=== PATIENT | female | born 1970 | race Caucasian/White ===

== ENCOUNTER 2018-07-27 14:44 | Emergency (ER) | payer SELFPAY ==
[~2018-07-27] VITALS: Ht 167.6 cm; Wt 115.9 kg
[2018-07-27 14:47] VITALS: Ht 167.6 cm; Wt 115.9 kg
[2018-07-27] MEDS ORDERED: CORTEF10 MG PO (14:50)
[2018-07-27] MEDS ORDERED: FLORINEF 0.1 M0.1 MG PO (14:50)
[2018-07-27] MEDS ORDERED: BUSPAR10 MG PO (14:51)
[2018-07-27] MEDS ORDERED: NEURONTIN 300300 MG PO (14:51)
[2018-07-27] MEDS ORDERED: TRAZODONE HCL100 MG PO (14:51)
[2018-07-27] MEDS ORDERED: PROPRANOLOL HCL20 MG PO (14:51)
[2018-07-27] MEDS ORDERED: CYMBALTA60 MG (14:52)
[2018-07-27] MEDS ORDERED: CYCLOBENZAPRINE10 MG PO (17:02)
[2018-07-27] MEDS ORDERED: EC-NAPROSYN500 MG PO (17:02)
[2018-07-27 17:50] VITALS: BP 118/72
== END 2018-07-27 17:52 | disposition home or self-care (01) ==
LOC: D.ER 14:44
DX: S93.402A Sprain of unspecified ligament of left ankle, initial encounter (principal); W18.31XA Fall on same level due to stepping on an object, initial encounter; Y93.89 Activity, other specified; Y92.019 Unspecified place in single-family (private) house as the place of occurrence of the external cause; S83.92XA Sprain of unspecified site of left knee, initial encounter; M54.5 Low back pain; E27.1 Primary adrenocortical insufficiency; E06.3 Autoimmune thyroiditis

== ENCOUNTER 2018-11-10 20:27 | Emergency (ER) | payer SELFPAY ==
[~2018-11-10] VITALS: Ht 167.6 cm; Wt 118.2 kg
[~2018-11-10 20:27] MED LIST: BUSPAR10 MG PO; CORTEF10 MG PO; CYCLOBENZAPRINE10 MG PO; CYMBALTA60 MG; EC-NAPROSYN500 MG PO; FLORINEF 0.1 M0.1 MG PO; NEURONTIN 300300 MG PO; PROPRANOLOL HCL20 MG PO; TRAZODONE HCL100 MG PO
[2018-11-10 20:31] VITALS: Ht 167.6 cm; Wt 118.2 kg
[2018-11-10] MEDS ORDERED: ESTRACE 0.5 MG0.5 MG (20:34)
[2018-11-10 21:26] LABS: BASOPHILS 0.4 % (0-2); EOSINOPHILS 2.9 % (0-7); HEMATOCRIT 39.6 % (36.0-48.0); HEMOGLOBIN 13.4 g/dL (12-16); IMMATURE GRANULOCYTES 0.1 % (0-5); LYMPHOCYTES 30.1 % (15-50); MCH 29.6 pg (26.0-34.0); MCHC 33.8 g/dL (31.0-37.0); MCV 87.6 fL (80.0-100.0); MEAN PLATELET VOLUME 9.3 fL (7.4-10.4); MONOCYTES 11.9 % (2-11); NEUTROPHILS 54.6 % (40-80); PLATELET COUNT 220 10x3/uL (130-400); RBC 4.52 10x6/uL (4.00-5.40); RDW 13.3 % (11.5-14.5); WBC 7.2 10x3/uL (4.8-10.8)
[2018-11-10 21:45] LABS: ALBUMIN 3.6 g/dL (3.4-5.0); ALKALINE PHOSPHATASE 55 U/L (46-116); ALT (SGPT) 27 U/L (10-68); BILIRUBIN - TOTAL 0.17 mg/dL (0.2-1.3); CALC OSMOLALITY 280 mosm/kg (275-300); CALCIUM 8.8 mg/dL (8.5-10.1); CARBON DIOXIDE 29.2 mmol/L (21.0-32.0); CHLORIDE - SERUM 105 mmol/L (98-107); CREATININE - SERUM 1.3 mg/dL (0.6-1.3); GLUCOSE 87 mg/dL (74-106); POTASSIUM - SERUM 5.1 mmol/L (3.5-5.1); PROTEIN - SERUM 6.9 g/dL (6.4-8.2); SODIUM 140 mmol/L (136-145); UREA NITROGEN 22 mg/dL (7-18); eGFR NON AFRICAN AMERICAN 46 mL/min (90-120)
[2018-11-10 21:51] LABS: AMYLASE - SERUM 71 U/L (25-115); LIPASE 388 U/L (73-393); TROPONIN-I < 0.017 ng/mL (0.000-0.060)
[2018-11-10 22:55] LABS: APPEARANCE CLEAR (CLEAR); BILIRUBIN NEGATIVE (NEGATIVE); COLOR YELLOW (YELLOW); GLUCOSE NEGATIVE (NEGATIVE); KETONE NEGATIVE (NEGATIVE); NITRITE NEGATIVE (NEGATIVE); PROTEIN TRACE mg/dL (NEGATIVE); UROBILINOGEN NORMAL (NORMAL)
[2018-11-10 22:57] LABS: HCG URINE NEGATIVE (NEGATIVE)
[2018-11-11] MEDS ORDERED: CHRONULAC30 ML PO (02:11)
[2018-11-11 02:35] VITALS: BP 112/56
== END 2018-11-11 02:36 | disposition home or self-care (01) ==
LOC: D.ER 20:27
PROVIDERS: Family Medicine
DX: N83.202 Unspecified ovarian cyst, left side (principal); K59.00 Constipation, unspecified; E27.1 Primary adrenocortical insufficiency; E06.3 Autoimmune thyroiditis

== ENCOUNTER 2019-03-08 10:08 | Emergency (ER) | payer OTHER ==
[~2019-03-08] VITALS: Ht 167.6 cm; Wt 115.0 kg
[~2019-03-08 10:08] MED LIST changes: +CHRONULAC30 ML PO; +ESTRACE 0.5 MG0.5 MG
[2019-03-08 10:14] VITALS: Ht 167.6 cm; Wt 115.0 kg
[2019-03-08 11:05] LABS: BASOPHILS 0.4 % (0-2); EOSINOPHILS 1.5 % (0-7); HEMATOCRIT 46.3 % (36.0-48.0); HEMOGLOBIN 16.9 g/dL (12-16); IMMATURE GRANULOCYTES 0.2 % (0-5); LYMPHOCYTES 25.6 % (15-50); MCH 30.2 pg (26.0-34.0); MCHC 36.5 g/dL (31.0-37.0); MCV 82.8 fL (80.0-100.0); MEAN PLATELET VOLUME 9.3 fL (7.4-10.4); MONOCYTES 12.1 % (2-11); NEUTROPHILS 60.2 % (40-80); RBC 5.59 10x6/uL (4.00-5.40); RDW 12.5 % (11.5-14.5); WBC 9.6 10x3/uL (4.8-10.8)
[2019-03-08 11:06] LABS: PLATELET COUNT 282 10x3/uL (130-400)
[2019-03-08 11:12] LABS: APTT 24.4 SECONDS (22.8-39.4); INR 1.15 (0.85-1.17); PROTIME 14.2 SECONDS (11.6-15.0)
[2019-03-08 11:13] LABS: APPEARANCE CLEAR (CLEAR); BILIRUBIN NEGATIVE (NEGATIVE); COLOR STRAW (YELLOW); GLUCOSE NEGATIVE (NEGATIVE); KETONE NEGATIVE (NEGATIVE); NITRITE NEGATIVE (NEGATIVE); PROTEIN NEGATIVE (NEGATIVE); SPECIFIC GRAVITY 1.005 (1.005-1.020); UROBILINOGEN NORMAL (NORMAL)
[2019-03-08 11:21] LABS: ALBUMIN 4.4 g/dL (3.4-5.0); ALKALINE PHOSPHATASE 73 U/L (46-116); ALT (SGPT) 50 U/L (10-68); BILIRUBIN - TOTAL 0.54 mg/dL (0.2-1.3); CALC OSMOLALITY 270 mosm/kg (275-300); CALCIUM 10.3 mg/dL (8.5-10.1); CARBON DIOXIDE 24.9 mmol/L (21.0-32.0); CHLORIDE - SERUM 95 mmol/L (98-107); CREATININE - SERUM 1.4 mg/dL (0.6-1.3); GLUCOSE 95 mg/dL (74-106); POTASSIUM - SERUM 4.7 mmol/L (3.5-5.1); PROTEIN - SERUM 8.5 g/dL (6.4-8.2); SODIUM 132 mmol/L (136-145); UREA NITROGEN 29 mg/dL (7-18); eGFR NON AFRICAN AMERICAN 42 mL/min (90-120)
[2019-03-08 11:50] LABS: CKMB 0.4 U/L (0.0-3.6); CREATINE KINASE 35 UL (21-215); TROPONIN-I < 0.017 ng/mL (0.000-0.060)
[2019-03-08 16:14] VITALS: BP 122/76
== END 2019-03-08 16:15 | disposition home or self-care (01) ==
LOC: D.ER 10:08
PROVIDERS: Family Medicine
DX: E86.0 Dehydration (principal); N17.9 Acute kidney failure, unspecified